=== PATIENT | female | born 1980 | race American Indian/Alaskan Native ===

== ENCOUNTER 2024-12-27 13:58 | Emergency (ER) | payer BC ==
[~2024-12-27] VITALS: Ht 172.7 cm; Wt 81.6 kg
[2024-12-27] MEDS ORDERED: CYMBALTA60 MG (14:26)
[2024-12-27] MEDS ORDERED: ELIQUIS5 MG (14:26)
[2024-12-27] MEDS ORDERED: ATORVASTATIN CA20 MG (14:27)
[2024-12-27] MEDS ORDERED: DEXAMETHASONE SODIUM PHOSPHATE 4 MG/ML VIAL IM STA (14:53)
[2024-12-27] MEDS ORDERED: KETOROLAC TROMETHAMINE 30 MG VIAL IM STA (14:54)
[2024-12-27] MEDS ORDERED: ORPHENADRINE CITRATE 30 MG/ML AMPUL IM STA (14:54)
[2024-12-27] MEDS ORDERED: DEXAMETHASONE SODIUM PHOSPHATE 4 MG/ML VIAL ONE (15:15)
[2024-12-27] MEDS ORDERED: KETOROLAC TROMETHAMINE 30 MG VIAL ONE (15:15)
[2024-12-27] MEDS ORDERED: ORPHENADRINE CITRATE 30 MG/ML AMPUL ONE (15:15)
== END 2024-12-27 18:19 | disposition home or self-care (01) ==
LOC: ER 13:59
DX: M62.838 Other muscle spasm (principal); Z88.0 Allergy status to penicillin; Z88.8 Allergy status to other drugs, medicaments and biological substances